=== PATIENT | female | born 1955 | race Two or more races ===

== ENCOUNTER 2018-06-13 21:31 | Emergency (ER) | payer MEDICARE, MEDICAID ==
[~2018-06-13] VITALS: Ht 162.6 cm; Wt 72.6 kg
[2018-06-13 22:30] LABS: White Blood Cell 4.4 10^3/uL (4.4-10.8)
[2018-06-13 22:43] LABS: Albumin 3.2 g/dL (3.4-5.0); Potassium 3.1 mmol/L (3.5-5.1)
[2018-06-13 22:44] LABS: Hematocrit 39.7 % (36.0-46.0); Hemoglobin 13.5 g/dL (12.2-16.2); Mean Corpuscular Hemoglobin 34.2 pg (28.0-32.0); Mean Corpuscular Volume 100.6 fL (80.0-100.0); Red Blood Cells 3.94 10^6/uL (4.0-5.20)
[2018-06-13 22:45] LABS: Platelet Count (auto) 156 10^3/uL (140-450); Red Cell Distribution Width 13.9 % (11.8-14.3)
[2018-06-13 22:47] LABS: Band Neutrophils % (manual) 0; Basophils % (manual) 0 (0.0-2.0); Blast Cells 0; Metamyelocytes % 0; Myelocytes % 0; Promyelocytes % 0; Reactive Lymphocytes 0
[2018-06-13 22:51] LABS: BUN/Creatinine Ratio 5.1; Bilirubin, Total 0.8 mg/dL (0.2-1.0); Total Protein 7.2 g/dL (6.4-8.2)
[2018-06-13 23:29] LABS: Eosinophils % (manual) 1 (0-7); Lymphocytes % (manual) 44 (10.0-50.0); Monocytes % (manual) 32 (0-12)
[2018-06-14] MEDS ORDERED: LORazepam 0.5 MG TAB PO ONE (00:30)
[2018-06-14] MEDS ORDERED: ONDANSETRON ODT 4 MG TAB PO ONE (00:30)
[2018-06-14 04:50] VITALS: BP 112/47
== END 2018-06-14 05:45 | disposition home or self-care (01) ==
LOC: EDBD 21:31 → EDSEX 21:31 → ER 21:33
DX: G40.909 Epilepsy, unspecified, not intractable, without status epilepticus (principal); R19.7 Diarrhea, unspecified
CPT/HCPCS: 36415; 70450; 80053; 82542; 85007; 85027; 93005; 99285; Q0162

== ENCOUNTER → 2018-08-06 | Outpatient (CLI) | payer MEDICARE, MEDICAID | END | disposition home or self-care (01) | LOC: LAB 10:41 | PROVIDERS: ATTEND Internal Medicine | DX: R73.03 Prediabetes (principal); R73.9 Hyperglycemia, unspecified | CPT/HCPCS: 36415; 83036 ==

== ENCOUNTER → 2019-04-30 | Outpatient (CLI) | payer MEDICARE, MEDICAID ==
[2019-04-30 11:28] LABS: Basophils # (auto) 0 uL; Eosinophils # (auto) 0 uL; Eosinophils % (auto) 0.3 % (0.0-7.0); Neutrophils # (auto) 1.9 uL; Platelet Count (auto) 136 10^3/uL (140-450); White Blood Cell 4.4 10^3/uL (4.4-10.8)
[2019-04-30 11:30] LABS: Basophils % (auto) 1.1 % (0.0-2.0); Hematocrit 40.1 % (36.0-46.0); Hemoglobin 13.3 g/dL (12.2-16.2); Lymphocytes # (auto) 1.7 uL; Lymphocytes % (auto) 37.8 % (10.0-50.0); Mean Corpuscular Hemoglobin 34.9 pg (28.0-32.0); Mean Corpuscular Hgb Conc. 33.1 g/dL (32.0-36.0); Mean Corpuscular Volume 105.3 fL (80.0-100.0); Monocytes # (auto) 0.7 uL; Monocytes % (auto) 16.6 % (0.0-12.0); Neutrophils % (auto) 44.2 % (37.0-80.0); Nucleated Red Blood Cells % 0.2 %; Red Blood Cells 3.81 10^6/uL (4.0-5.20); Red Cell Distribution Width 16.4 % (11.8-14.3)
[2019-04-30 12:08] LABS: Albumin 3.4 g/dL (3.4-5.0); Bilirubin, Total 0.6 mg/dL (0.2-1.0); Calcium 8.7 mg/dL (8.5-10.1); Potassium 3.5 mmol/L (3.5-5.1); Total Protein 7.6 g/dL (6.4-8.2)
== END | disposition home or self-care (01) ==
LOC: LAB 10:29
PROVIDERS: ATTEND Internal Medicine
DX: E11.9 Type 2 diabetes mellitus without complications (principal); E03.9 Hypothyroidism, unspecified
CPT/HCPCS: 36415; 80053; 80061; 82043; 85025

== ENCOUNTER → 2019-05-28 | Outpatient (CLI) | payer MEDICARE, MEDICAID | END | disposition home or self-care (01) | LOC: LAB 09:16 | PROVIDERS: ATTEND Internal Medicine | DX: E03.9 Hypothyroidism, unspecified (principal); E11.9 Type 2 diabetes mellitus without complications; M25.511 Pain in right shoulder | CPT/HCPCS: 36415; 82550 ==

== ENCOUNTER 2019-10-02 10:30 | Emergency (ER) | payer MEDICARE, MEDICAID ==
[~2019-10-02] VITALS: Ht 162.6 cm; Wt 93.0 kg
[2019-10-02 10:41] VITALS: BP 110/55
== END 2019-10-02 12:40 | disposition home or self-care (01) ==
LOC: ER 10:30
DX: S92.411A Displaced fracture of proximal phalanx of right great toe, initial encounter for closed fracture (principal); M19.071 Primary osteoarthritis, right ankle and foot; W19.XXXA Unspecified fall, initial encounter; Y93.89 Activity, other specified; Y92.89 Other specified places as the place of occurrence of the external cause; Y99.8 Other external cause status
CPT/HCPCS: 29515; 73630

== ENCOUNTER → 2019-11-24 | Outpatient (CLI) | payer MEDICARE, MEDICAID ==
[2019-11-24 10:17] LABS: Basophils # (auto) 0.1 10 ^3/uL (0-0.2); Basophils % (auto) 1.1 % (0.0-2.0); Eosinophils # (auto) 0 10 ^3/uL (0-0.8); Hematocrit 38.7 % (36.0-46.0); Lymphocytes # (auto) 1.6 10 ^3/uL (0.4-5.4); Monocytes # (auto) 0.8 10 ^3/uL (0-1.3); White Blood Cell 5.1 10^3/uL (4.4-10.8)
[2019-11-24 10:18] LABS: Eosinophils % (auto) 0.3 % (0.0-7.0); Lymphocytes % (auto) 31.5 % (10.0-50.0); Mean Corpuscular Hemoglobin 34.8 pg (28.0-32.0); Mean Corpuscular Hgb Conc. 33.6 g/dL (32.0-36.0); Mean Corpuscular Volume 103.7 fL (80.0-100.0); Neutrophils # (auto) 2.7 10 ^3/uL (1.6-8.6); Neutrophils % (auto) 52.1 % (37.0-80.0); Nucleated Red Blood Cells % 0.1 %; Platelet Count (auto) 141 10^3/uL (140-450); Red Blood Cells 3.74 10^6/uL (4.0-5.20); Red Cell Distribution Width 15.6 % (11.8-14.3)
[2019-11-24 10:35] LABS: Albumin 3.4 g/dL (3.4-5.0); Calcium 8.6 mg/dL (8.5-10.1); Potassium 3.3 mmol/L (3.5-5.1)
[2019-11-24 10:44] LABS: BUN/Creatinine Ratio 12.3; Bilirubin, Total 0.6 mg/dL (0.2-1.0); CRP High Sensitivity 1.33 mg/dL (< 0.3); Total Protein 7.2 g/dL (6.4-8.2)
== END | disposition home or self-care (01) ==
LOC: LAB 09:29
PROVIDERS: ATTEND Internal Medicine
DX: E11.9 Type 2 diabetes mellitus without complications (principal); D86.9 Sarcoidosis, unspecified; M25.511 Pain in right shoulder; E78.49 Other hyperlipidemia
CPT/HCPCS: 36415; 80053; 82550; 83036; 85025; 85652; 86141

== ENCOUNTER → 2020-02-05 | Outpatient (CLI) | payer MEDICARE, MEDICAID ==
[2020-02-05 11:46] LABS: Albumin 3.5 g/dL (3.4-5.0); Bilirubin, Direct 0.2 mg/dL (0-0.2); CRP High Sensitivity 0.39 mg/dL (< 0.3)
[2020-02-05 11:49] LABS: Bilirubin, Total 0.6 mg/dL (0.2-1.0); Total Protein 6.8 g/dL (6.4-8.2)
== END | disposition home or self-care (01) ==
LOC: LAB 10:53
PROVIDERS: ATTEND Internal Medicine
DX: E11.9 Type 2 diabetes mellitus without complications (principal); M25.511 Pain in right shoulder
CPT/HCPCS: 36415; 80076; 85652; 86141

== ENCOUNTER 2020-05-07 22:08 | Inpatient (IN) | payer MEDICARE, MEDICAID ==
[~2020-05-07] VITALS: Ht 170.2 cm; Wt 105.8 kg
[~2020-05-07 22:08] MED LIST: DEXL60CA4 PO; FERR-20 PO; FOLI1TAB6 PO; HYDR-4833 PO; LEVE750T15 PO; LEVO50TA7 PO; LORA-622 PO; MELO1TAB73 PO; METH2.5T PO; PRE5T OR
[2020-05-07] MEDS ORDERED: NOREPINEPHRINE 8 MG/250ML KIT 250 ML IV ONE (22:45)
[2020-05-07] MEDS: NOREPINEPHRINE 8 MG/250ML KIT 250 ML IV SCH (22:54)
[2020-05-07 23:08] LABS: Hemoglobin 10.4 g/dL (12.2-16.2)
[2020-05-07 23:10] LABS: Mean Corpuscular Hemoglobin 35.1 pg (28.0-32.0); Mean Corpuscular Hgb Conc. 31.5 g/dL (32.0-36.0); Mean Corpuscular Volume 111.5 fL (80.0-100.0); Platelet Count (auto) 88 10^3/uL (140-450); Red Blood Cells 2.96 10^6/uL (4.0-5.20); Red Cell Distribution Width 18.6 % (11.8-14.3); White Blood Cell 22.1 10^3/uL (4.4-10.8)
[2020-05-07] MEDS ORDERED: EPINEPHrine HCL 1 MG/10 ML SYRG ONE (23:10)
[2020-05-07 23:12] LABS: Basophils % (manual) 0 (0.0-2.0); Blast Cells 0; Eosinophils % (manual) 0 (0-7); Metamyelocytes % 0; Myelocytes % 0; Promyelocytes % 0; Reactive Lymphocytes 0
[2020-05-07 23:23] LABS: INR 1.4 (0.9-1.15); Partial Thromboplastin Time 44.4 sec (23.0-31.2)
[2020-05-07 23:26] LABS: BUN/Creatinine Ratio 6.9; Calcium 11.1 mg/dL (8.5-10.1); Magnesium 2.1 mg/dL (1.6-2.6)
[2020-05-07 23:27] VITALS: BP 117/52
[2020-05-07 23:31] LABS: Bilirubin, Total 1.1 mg/dL (0.2-1.0); Lactic Acid w/Reflex 14.6 mmol/L (0.4-2.0); Total Protein 5.4 g/dL (6.4-8.2)
[2020-05-07] MEDS ORDERED: SODIUM BICARBONATE 8.4 % INJ 50ML VIAL IV ONE (23:37)
[2020-05-07] MEDS ORDERED: CALCIUM CHLOR(10%) 100MG/ML 10ML SYRINGE IV ONE ×2 (23:47→23:52)
[2020-05-07 23:59] LABS: Band Neutrophils % (manual) 7; Lymphocytes % (manual) 35 (10.0-50.0)
[2020-05-08] VITALS (53 sets, daily range): BP systolic 53–128; BP diastolic 26–88
[2020-05-08] LABS: Monocytes % (manual) 11 (0-12)
[2020-05-08] MEDS ORDERED: EPINEPHrine HCL 250 ML IV ONE ×2 (00:28→07:35)
[2020-05-08] MEDS ORDERED: EPINEPHrine HCL INJECTION 4 MG in SODIUM CHL 0.9% 250 ML IV ONE (00:30)
[2020-05-08] MEDS ORDERED: MIDAZOLAM HCL 5 MG/ML-1ML VIAL ONE (01:29)
[2020-05-08] MEDS ORDERED: MIDAZOLAM HCL 5 MG/ML-1ML VIAL IV ONE (02:15)
[2020-05-08] MEDS ORDERED: SODIUM BICARBONATE 8.4 % INJ 50ML VIAL IV ONE ×4 (02:15→14:30)
[2020-05-08] MEDS ORDERED: DexAMETHasone SOD PHOS 10MG/1ML VIAL INJ IV ONE (02:15)
[2020-05-08] MEDS ORDERED: SODIUM BICARBONATE 50ML VIAL 50 ML in SOD CHL 0.45% 1,000 ML IV ONE (02:15)
[2020-05-08] MEDS ORDERED: DOXYCYCLINE 100MG/250ML 250 ML IV ONE (02:15)
[2020-05-08] MEDS: NOREPINEPHRINE 8 MG/250ML KIT 250 ML IV SCH ×3 (03:39→22:12)
[2020-05-08] MEDS ORDERED: SODIUM CHLORIDE 0.9% 1,000 ML IV ONE (04:45)
[2020-05-08] MEDS ORDERED: MORPHINE SULF INJ 2 MG/ML SYRINGE 1ML IV PRN ×2 (06:15)
[2020-05-08] MEDS ORDERED: ACETAMINOPHEN 500 MG TAB PO PRN ×2 (06:15→17:15)
[2020-05-08] MEDS ORDERED: METOCLOPRAMIDE HCL 5MG/ml INJ 2ml VIAL IV PRN (06:15)
[2020-05-08] MEDS ORDERED: NITROGLYCERIN 0.4 MG SL TAB SL PRN (06:15)
[2020-05-08] MEDS ORDERED: METOPROLOL TARTRATE 1MG/1ML-5ML VIAL IV PRN (06:15)
[2020-05-08] MEDS ORDERED: ACETAMINOPHEN 325 MG TAB PO PRN ×3 (06:15→17:15)
[2020-05-08] MEDS ORDERED: ONDANSETRON HCL 4 MG/2 ML VIAL IV PRN (06:15)
[2020-05-08] MEDS: SODIUM CHLORIDE 0.9% 1,000 ML IV SCH ×2 (06:48→22:10)
--- NOTE | 2020-05-08 07:18 | NUR ---
Respiratory note: ABG DRAWN AT THIS TIME. PT TEMP 94.4F. PT ON NORI HUGGER IN PLACE.
[2020-05-08] MEDS ORDERED: MIDAZOLAM DRIP 50 mg/50mL 50 ML IV ONE (07:47)
[2020-05-08] MEDS: MIDAZOLAM DRIP 50 mg/50mL 50 ML IV SCH ×2 (07:56→22:15)
[2020-05-08 08:26] LABS: Urine Bacteria MANY /hpf (None Seen); Urine Blood 3+ /uL (Negative); Urine Budding Yeast MANY /hpf (None Seen); Urine Hyaline Cast MANY /lpf (0 - 2); Urine Mucus FEW (None Seen); Urine Specific Gravity 1.012 (1.001-1.035); Urine WBC 49 /hpf (0 - 5); Urine WBC Clumps PRESENT /hpf (None Seen)
[2020-05-08 08:35] LABS: Cholesterol 168 mg/dL (< 200); HDL Cholesterol 7 mg/dL (40-59); LDL Cholesterol 45 mg/dL (< 100); Triglycerides 46 mg/dL (< 150)
[2020-05-08 08:40] LABS: Alcohol, Urine < 3.0 mg/dL (0-10); Amphetamine Screen, Urine NEGATIVE (NEGATIVE); Barbiturate Scree,Urine NEGATIVE (NEGATIVE); Benzodiazephine Screen, Urine POSITIVE (NEGATIVE); Cannabinoid Screen, Urine NEGATIVE (NEGATIVE); Cocaine Screen, Urine NEGATIVE (NEGATIVE); Opiate Scree,Urine NEGATIVE (NEGATIVE); Phencyclidine Screen, Urine NEGATIVE (NEGATIVE)
--- NOTE | 2020-05-08 09:30 | NUR ---
RT Transport Note: Patient transported to {ICU 102} with RN {ELLA}. Patient transported to and from procedure on ventilator with previous ordered settings. Patient on monitoring specialist with alarms set and audible, ambu-bag/mask connected to 02 tank. Patient returned to room with no adverse reaction noted. Transport completed without incident.
--- NOTE | 2020-05-08 09:35 | NUR ---
[facility] MED[facility]mitted to ICU via gurney on court recording monitor, intubated and being bagged by Respiratory Therapist. Patient transfered to bed, connected to mechanical ventilator by therapist, ROSS at bedside. Patient connected to ICU monitoring, weighed by bedscale. Patient non-responsive with rectrative tachypneic breathing pattern. Pupils fixed and dilated, no cough, no gag. In house Covid swab obtained. Paitent currently with maximum dosage of Levophed and Epi, refer to IV spreadsheet for drip rates. All assessments completed and documented in appropriate flowsheets.
[2020-05-08] MEDS ORDERED: ENOXAPARIN SOD 100 MG/1 ML SYRINGE SC SCH (10:00)
[2020-05-08] MEDS ORDERED: DOXYCYCLINE 100MG/250ML 250 ML IV SCH (10:00)
[2020-05-08] MEDS ORDERED: ENOXAPARIN SOD 40 MG/0.4 ML SYRINGE SC SCH (10:00)
[2020-05-08] MEDS ORDERED: NALOXONE HCL 1MG/ML 2ML SYRINGE IV ONE (10:32)
[2020-05-08] MEDS ORDERED: CALCIUM CHLOR(10%) 100MG/ML 10ML SYRINGE IV ONE (10:32)
[2020-05-08] MEDS ORDERED: SODIUM BICARBONATE 8.4% INJ 50ML SYRINGE IV ONE (10:32)
[2020-05-08] MEDS ORDERED: EPINEPHrine HCL 1 MG/10 ML SYRG IV ONE (10:32)
[2020-05-08] MEDS: ENOXAPARIN SOD 30 MG/0.3 ML SYRINGE SC SCH (11:30)
[2020-05-08] MEDS: ZINC SULFATE 220mg CAP or TAB PO SCH (11:30)
[2020-05-08] MEDS: CLOPIDOGREL BISULFATE 75 MG TAB PO SCH (11:30)
[2020-05-08] MEDS: ASPirin 81 mg TAB PO SCH (11:30)
[2020-05-08] MEDS: ASCORBIC ACID 1,000 MG TAB PO SCH (11:30)
[2020-05-08] MEDS ORDERED: LORazepam 2MG/ML-1ML VIAL IV PRN (11:45)
[2020-05-08] MEDS ORDERED: VANCOMYCIN PER PHARMACY 1,000 MG IV SCH (11:45)
[2020-05-08] MEDS ORDERED: MORPHINE SULFATE 4 MG/ML SYR/VIAL IV PRN (11:45)
[2020-05-08] MEDS ORDERED: LEVOTHYROXINE SODIUM 25 MCG TAB PO ONE (12:00)
[2020-05-08] MEDS: HYDROCORTISONE SOD SUCC 100 MG/2ML INJ VIAL IV SCH ×2 (12:00→18:00)
[2020-05-08] MEDS ORDERED: PHENYLEPHRINE IV 250 ML IV ONE (12:46)
[2020-05-08] MEDS: EPINEPHrine HCL 250 ML IV SCH ×2 (13:00→20:16)
[2020-05-08] MEDS: PHENYLEPHRINE IV 250 ML IV SCH ×2 (13:28→20:15)
[2020-05-08] MEDS ORDERED: ALBUTEROL SULF HFA 90MCG INH 200DOSE IN SCH (14:00)
[2020-05-08] MEDS ORDERED: SODIUM BICARBONATE 8.4% INJ 50ML SYRINGE ONE (14:06)
--- NOTE | 2020-05-08 14:16 | NUR ---
AT BEDSIDE; Dr. Whelan at bedside, orders received.
[2020-05-08] MEDS: PROPOFOL 100 ML IV SCH (14:22)
[2020-05-08] MEDS: fentaNYL Drip 2500mCg/250mlNS 250 ML IV SCH (14:22)
[2020-05-08 14:30] LABS: Lactic Acid w/Reflex 12.4 mmol/L (0.4-2.0)
[2020-05-08] MEDS: SODIUM BICARBONATE 50ML VIAL 150 ML in D5W 5% 1,000 ML IV SCH ×2 (14:30→23:42)
[2020-05-08] MEDS ORDERED: VANCOMYCIN 1GM/250ML 250 ML IV ONE (15:00)
[2020-05-08] MEDS: PIPERACILLIN-TAZOB 3.375GM 100 ML IV SCH ×2 (15:17→18:00)
--- NOTE | 2020-05-08 19:15 | NUR ---
OPENING NOTE RECEIVED REPORT FROM ALBIN FALLON. PATIENT INTUBATED AND SEDATED ON VERSED. FOLLOWING COVID [address] ON PIECE HAND WITH BP SUPPORTED BY EPI EMILIANO AND LEVO VASOPRESSORS. OGT CLAMPED. BENAVIDES PATENT TO GRAVITY. RIGHT SUBCLAVIAN TLC CDI. PATIENT POSITION FOR COMFORT. FOR MORE INFORMATION SEE INTERVENTIONS. FOR GTTS AND THEIR TITRATIONS SEE IV SPREAD SHEET. ALL FALL AND SAFETY PRECAUTIONS IN PLACE.
[2020-05-08] MEDS ORDERED: ATORVASTATIN 20 MG TAB PO SCH ×2 (22:00)
[2020-05-08] MEDS: IPRATROPIUM BROM 0.5 MG/2.5ML INH SOL NEB SCH (22:00)
[2020-05-08] MEDS ORDERED: FAMOTIDINE (10MG/ML) 2ML VL IV SCH (22:00)
[2020-05-08] MEDS: ALBUTEROL SULF 2.5 MG/0.5ML(0.5%) NEB SOLN NEB SCH (22:00)
[2020-05-09] VITALS (92 sets, daily range): BP systolic 82–130; BP diastolic 48–78
[2020-05-09] MEDS: MIDAZOLAM DRIP 50 mg/50mL 50 ML IV SCH ×2 (00:55→04:31)
[2020-05-09] MEDS: EPINEPHrine HCL 250 ML IV SCH ×2 (03:00→09:52)
--- NOTE | 2020-05-09 03:30 | NUR ---
COMPLETE BED BATH PROVIDED SKIN REASSESSED AND NO NEW BREAK DOWN NOTED. COMPLETE LINEN CHANGE PROVIDED
[2020-05-09 04:41] LABS: Hemoglobin 8.1 g/dL (12.2-16.2)
[2020-05-09 04:45] LABS: Hematocrit 26.6 % (36.0-46.0); Mean Corpuscular Hemoglobin 32.8 pg (28.0-32.0); Mean Corpuscular Hgb Conc. 30.5 g/dL (32.0-36.0); Mean Corpuscular Volume 107.2 fL (80.0-100.0); Platelet Count (auto) 75 10^3/uL (140-450); Red Blood Cells 2.48 10^6/uL (4.0-5.20); Red Cell Distribution Width 18.3 % (11.8-14.3)
[2020-05-09 04:57] LABS: Albumin 1.5 g/dL (3.4-5.0); Calcium 6.6 mg/dL (8.5-10.1); Magnesium 1.6 mg/dL (1.6-2.6); Potassium 3.1 mmol/L (3.5-5.1)
[2020-05-09 05:16] LABS: BUN/Creatinine Ratio 10.2; Bilirubin, Total 1.6 mg/dL (0.2-1.0); Phosphorus 5.2 mg/dL (2.5-4.90); Total Protein 4.2 g/dL (6.4-8.2)
[2020-05-09 05:21] LABS: Basophils % (manual) 0 (0.0-2.0); Blast Cells 0; Eosinophils % (manual) 0 (0-7); Metamyelocytes % 0; Myelocytes % 0; Promyelocytes % 0; Reactive Lymphocytes 0
--- NOTE | 2020-05-09 05:25 | NUR ---
RECEIVED CRITICAL LAB VALUE PAGED HOSPITALIST FOR ELEVATED WBC AWAITING CALL BACK
[2020-05-09] MEDS: PIPERACILLIN-TAZOB 3.375GM 100 ML IV SCH ×2 (05:48)
[2020-05-09] MEDS: HYDROCORTISONE SOD SUCC 100 MG/2ML INJ VIAL IV SCH ×5 (05:48→23:43)
--- NOTE | 2020-05-09 06:03 | NUR ---
RECEIVED CALL BACK FROM MD KOROMA UPDATED ON PATIENT WBC COUNT. RECEIVED ORDER FOR ONCOLOGY CONSULT
[2020-05-09] MEDS: PHENYLEPHRINE IV 250 ML IV SCH ×3 (06:08→22:48)
[2020-05-09 06:15] LABS: INR 2.27 (0.9-1.15); Partial Thromboplastin Time 64.6 sec (23.0-31.2)
[2020-05-09 06:32] LABS: Band Neutrophils % (manual) 20; Lymphocytes % (manual) 1 (10.0-50.0); Monocytes % (manual) 12 (0-12)
[2020-05-09] MEDS: IPRATROPIUM BROM 0.5 MG/2.5ML INH SOL NEB SCH ×3 (06:43→22:56)
[2020-05-09] MEDS: ALBUTEROL SULF 2.5 MG/0.5ML(0.5%) NEB SOLN NEB SCH ×3 (06:43→22:56)
--- NOTE | 2020-05-09 06:50 | NUR ---
PLACED ONCOLOGY CONSULT SPOKE WITH ANGELITA AT MD VÁSQUEZ EXCHANGE
[2020-05-09] MEDS: NOREPINEPHRINE 8 MG/250ML KIT 250 ML IV SCH ×2 (06:58→11:44)
[2020-05-09] MEDS ORDERED: LEVOTHYROXINE SODIUM 25 MCG TAB PO SCH (07:00)
--- NOTE | 2020-05-09 07:03 | NUR ---
Respiratory note: FIO2 DECREASED TO 85% AT THIS TIME.
[2020-05-09] MEDS: SODIUM BICARBONATE 50ML VIAL 150 ML in D5W 5% 1,000 ML IV SCH (07:46)
[2020-05-09] MEDS: fentaNYL Drip 2500mCg/250mlNS 250 ML IV SCH (09:51)
[2020-05-09] MEDS: ENOXAPARIN SOD 30 MG/0.3 ML SYRINGE SC SCH (10:00)
[2020-05-09] MEDS: MEROPENEM 1GM IVPB 100 ML IV SCH ×2 (10:00→23:30)
[2020-05-09] MEDS: ASPirin 81 mg TAB PO SCH (10:00)
[2020-05-09] MEDS: ASCORBIC ACID 1,000 MG TAB PO SCH (10:00)
[2020-05-09] MEDS: ZINC SULFATE 220mg CAP or TAB PO SCH (10:00)
[2020-05-09] MEDS: CLOPIDOGREL BISULFATE 75 MG TAB PO SCH (10:00)
--- NOTE | 2020-05-09 10:30 | NUR ---
WOUND CARE NOTE: WOUND CARE IN TO SEE PATIENT PER WOUND CARE REQUEST. PATIENT ADMITTED TO [facility] FOR CPR, NSTEMI, UNCONTROLLED DIABETES WITH HYPERGLYCEMIA, AND HYPERTENSIVE URGENCY. PATIENT IS INTUBATED AND SEDATED. PATIENT HAS NO WOUNDS, CONSULT FOR LOW ARCHIE SCORE. PATIENT ARCHIE SCORE IS 11. PATIENT NOT STABLE TO BE TURNED AT THIS TIME. RECOMMEND: FREQUENT Q2HOUR REPOSITIONING CONDITION PERMITS. REDISTRIBUTE PRESSURE UTILIZING PILLOWS AND WEDGES. DAILY/PRN DRESSING CHANGE TO SACRUM PREVENTATIVE. SKIN/WOUND CARE PLAN. DIETARY CONSULT. CONTINUED MONITORING BY WOUND CARE TEAM.
--- NOTE | 2020-05-09 11:11 | NUR ---
Nutrition Consult Consider Glucerna 1.2 at 40 ml/hr when medically feasible and per MD approval Est energy needs 5558-1665 kcal (16-18 kcal/kg BW 97.7kg) Est protein needs 61-80g (1-1.3g/kg IBW 97.7kg) Will reassess prn. Addendum: 05/09/20 at [address] Amended: Links added.
[2020-05-09] MEDS ORDERED: FLUCONAZOLE 200MG/100ML 100 ML IV ONE (11:45)
[2020-05-09] MEDS ORDERED: POTASSIUM EFFERVESENT TAB 25 MEQ GT ONE (13:00)
[2020-05-09] MEDS ORDERED: BUMETANIDE 2.5mg/10ml (0.25 mg/ml) INJ IV ONE (13:00)
[2020-05-09] MEDS ORDERED: VANCOMYCIN 1,500 MG in D5W 5% 250 ML IV ONE (13:00)
[2020-05-09 13:13] LABS: Calcium 6.9 mg/dL (8.5-10.1); Potassium 3.3 mmol/L (3.5-5.1)
[2020-05-09] MEDS: BUMETANIDE INJECTION 25 MG in GIVE UN-DILUTED 0 ML IV SCH (14:16)
[2020-05-09] MEDS: PROPOFOL 100 ML IV SCH (14:22)
[2020-05-09] MEDS: EPINEPHrine HCL INJECTION 8 MG in D5W 5% 250 ML IV SCH (14:44)
[2020-05-09] MEDS: NOREPINEPHRINE BITARTRATE 16 MG in SODIUM CHL 0.9% 250 ML IV SCH (14:46)
[2020-05-09] MEDS: PANTOPRAZOLE 40 MG/10 ML VIAL INJ IV SCH (23:30)
--- NOTE | 2020-05-09 23:30 | NUR ---
performed accucheck-pt. on solu-cortef and bs= 304; will cont. to monitor.
[2020-05-10] VITALS (98 sets, daily range): BP systolic 53–147; BP diastolic 35–86
[2020-05-10] MEDS: HYDROCORTISONE SOD SUCC 100 MG/2ML INJ VIAL IV SCH ×3 (06:00→18:30)
[2020-05-10] MEDS: ALBUTEROL SULF 2.5 MG/0.5ML(0.5%) NEB SOLN NEB SCH ×3 (06:10→22:11)
[2020-05-10] MEDS: IPRATROPIUM BROM 0.5 MG/2.5ML INH SOL NEB SCH ×3 (06:11→22:11)
[2020-05-10 07:05] LABS: Mean Corpuscular Hgb Conc. 32.2 g/dL (32.0-36.0)
[2020-05-10 07:06] LABS: Hematocrit 21.8 % (36.0-46.0); Mean Corpuscular Hemoglobin 33.8 pg (28.0-32.0); Platelet Count (auto) 55 10^3/uL (140-450); Red Blood Cells 2.08 10^6/uL (4.0-5.20); Red Cell Distribution Width 17.6 % (11.8-14.3)
[2020-05-10] MEDS: PHENYLEPHRINE IV 250 ML IV SCH ×2 (07:08→16:30)
[2020-05-10 07:11] LABS: White Blood Cell 41.2 10^3/uL (4.4-10.8)
[2020-05-10 07:13] LABS: Basophils % (manual) 0 (0.0-2.0); Blast Cells 0; Eosinophils % (manual) 0 (0-7); Promyelocytes % 0; Reactive Lymphocytes 0
[2020-05-10 07:21] LABS: Albumin 1.5 g/dL (3.4-5.0)
[2020-05-10 07:24] LABS: BUN/Creatinine Ratio 11.8; Bilirubin, Total 1.5 mg/dL (0.2-1.0); Total Protein 4.4 g/dL (6.4-8.2)
[2020-05-10 07:30] LABS: Calcium 5.9 mg/dL (8.5-10.1)
[2020-05-10 07:42] LABS: Band Neutrophils % (manual) 3; Lymphocytes % (manual) 6 (10.0-50.0); Metamyelocytes % 4; Monocytes % (manual) 6 (0-12); Myelocytes % 1
[2020-05-10] MEDS: MIDAZOLAM DRIP 50 mg/50mL 50 ML IV SCH ×2 (08:09→13:02)
[2020-05-10] MEDS: BUMETANIDE INJECTION 25 MG in GIVE UN-DILUTED 0 ML IV SCH (08:26)
[2020-05-10] MEDS: DOXYCYCLINE 100MG/250ML 250 ML IV SCH (09:57)
[2020-05-10] MEDS: FLUCONAZOLE 200MG/100ML 100 ML IV SCH (09:58)
[2020-05-10] MEDS: PANTOPRAZOLE 40 MG/10 ML VIAL INJ IV SCH (09:59)
[2020-05-10] MEDS: MEROPENEM 500MG IVPB 50 ML IV SCH ×2 (10:00→10:43)
[2020-05-10] MEDS: ENOXAPARIN SOD 30 MG/0.3 ML SYRINGE SC SCH (10:00)
[2020-05-10] MEDS: NOREPINEPHRINE BITARTRATE 16 MG in SODIUM CHL 0.9% 250 ML IV SCH ×2 (10:00→18:31)
--- NOTE | 2020-05-10 10:00 | NUR ---
PT'S ASSESSMENT COMPLETED. PT'S PUPILS FIXED AND DILATED NON REACTIVE TO LIGHT TOLD ON REPORT. PT HAS CODED ON 3 DIFFERENT OCCASIONS AND IS ON MULTIPLE VASOPRESSORS FOR BP SUPPORT. PT HAS SCANT UOP DESPITE BUMEX GTT. PT REQUIRING 50 % FIO2, CURRENTLY HAS NO COUGH OR GAG REFLUX WHEN SUCTIONED THROUGH ETT. ORAL CARE PROVIDED NO BLOOD SUCTIONED THROUGH ETT AT THIS TIME. PT HAS LOW H+H AND LOW PLT AND IS GOING TO REQUIRE A BLOOD TRANSFUSION. REPOSITIONED FOR COMFORT WITH RT'S ASSISTANCE, LINEN CHANGED OGT VALVE SWITCHED SINCE OGT WAS LEAKING OUT VALVE. ALL MONITOR ALARMS VERIFIED AT THIS TIME. PT REMAINS ON COVID ISOLATION ALL CARE IS BEING CLUSTERED.
--- NOTE | 2020-05-10 10:51 | NUR ---
ALEX GARY PLT 75, PT HAS A LOW H+H PT NEEDS BLOOD TRANSFUSION Addendum: 05/10/20 at 1054 by BOB BRADLEY RN PLT 55 NOT 75
--- NOTE | 2020-05-10 12:05 | NUR ---
RENAL DR. RIZO ROUNDING ON PT. MD AWARE THAT PT IS NOT MAKING MUCH UOP DESPITE BUMEX GTT AT 1 MG/HR. MD AWARE THAT OUP WAS 50 ML IN THE LAST 12 HOURS AND PT IS ON MULTIPLE VASOPRESSORS FOR BP SUPPORT. MD AWARE THAT PT IS FULL CODE AND THAT PRIMARY MD HAS ADDRESSED PT'S POOR PROGNOSIS.
--- NOTE | 2020-05-10 12:08 | NUR ---
GI/ DR ALTAMIRANO ROUNDING ON PT. DISCUSSED LOW H+H , NO OBVIOUS SOURCE OF BLEEDING. PT HAD SOME BLEEDING THROUGH HIS MOUTH WHEN SUCTIONED LAST NIGHT. INR ELEVATED, PLT ARE LOW. MD ORDERED FFP. PT ALREADY HAS ONE UNIT OF PRBC'S ORDERED.
[2020-05-10] MEDS: PROPOFOL 100 ML IV SCH (14:22)
[2020-05-10] MEDS: fentaNYL Drip 2500mCg/250mlNS 250 ML IV SCH (14:22)
[2020-05-10] MEDS: EPINEPHrine HCL INJECTION 8 MG in D5W 5% 250 ML IV SCH (15:14)
--- NOTE | 2020-05-10 16:32 | NUR ---
I CALLED PT'S DAUGHTER NOAM AND ASKED HER TO COME IN TO SEE PT THROUGH [facility] , THAT PT IS SICK AND THAT WE DONT' KNOW IF PT IS GOING TO MAKE IT THROUGH THE NIGHT. THAT OUR DIRECTOR APPROVED FOR THEM TO COME AND TAKE TURNS VISITING PT TWO AT A TIME FOR 15 MIN EACH. PT'S DAUGHTER STATES " I AM GOING TO CALL THE REST OF MY FAMILY AND WE ARE COMING IN".
[2020-05-10] MEDS ORDERED: PHENYLEPHRINE IV 250 ML IV ONE ×3 (17:42→22:01)
--- NOTE | 2020-05-10 20:00 | NUR ---
report received and assumed care; see interventions for assessment; vs stable at this time- with patient on 100% fio2 and on x3 vasopressors; pt. intubated/sedated/vented; will cont. to monitor.
--- NOTE | 2020-05-10 21:00 | NUR ---
family in waiting room since shift change; will provide education on PPE and hand-washing; family instructed that three at a time for 5 minutes and outside room only; will start to bring family in as instructed.
[2020-05-11] VITALS (74 sets, daily range): BP systolic 53–145; BP diastolic 24–68
[2020-05-11] MEDS: MEROPENEM 500MG IVPB 50 ML IV SCH ×2 (00:30→11:32)
[2020-05-11] MEDS: PANTOPRAZOLE 40 MG/10 ML VIAL INJ IV SCH ×2 (00:45→10:05)
[2020-05-11] MEDS: HYDROCORTISONE SOD SUCC 100 MG/2ML INJ VIAL IV SCH ×3 (01:00→12:24)
[2020-05-11] MEDS: ALBUMIN 25% 50 ML IV SCH ×3 (01:30→06:17)
[2020-05-11] MEDS ORDERED: EPINEPHrine HCL 1 MG/1 ML AMP ONE (02:42)
[2020-05-11] MEDS ORDERED: EPINEPHrine HCL 250 ML IV ONE (02:43)
[2020-05-11 06:36] LABS: Hematocrit 17.2 % (36.0-46.0); Mean Corpuscular Hemoglobin 33.5 pg (28.0-32.0); Mean Corpuscular Hgb Conc. 33.6 g/dL (32.0-36.0); Mean Corpuscular Volume 99.7 fL (80.0-100.0); Platelet Count (auto) 36 10^3/uL (140-450); Red Blood Cells 1.73 10^6/uL (4.0-5.20)
[2020-05-11 06:49] LABS: Albumin 2.2 g/dL (3.4-5.0); Magnesium 1.5 mg/dL (1.6-2.6); Potassium 4.6 mmol/L (3.5-5.1)
[2020-05-11 06:53] LABS: BUN/Creatinine Ratio 12.5; Bilirubin, Total 1.9 mg/dL (0.2-1.0); Total Protein 4.6 g/dL (6.4-8.2)
[2020-05-11 07:05] LABS: Calcium 5.2 mg/dL (8.5-10.1)
[2020-05-11 07:06] LABS: White Blood Cell 32.3 10^3/uL (4.4-10.8)
[2020-05-11 07:07] LABS: Basophils % (manual) 0 (0.0-2.0); Blast Cells 0; Eosinophils % (manual) 0 (0-7); Hemoglobin 5.8 g/dL (12.2-16.2); Promyelocytes % 0; Reactive Lymphocytes 0
[2020-05-11 07:38] LABS: Band Neutrophils % (manual) 3; Lymphocytes % (manual) 3 (10.0-50.0); Metamyelocytes % 4; Monocytes % (manual) 2 (0-12); Myelocytes % 2
[2020-05-11] MEDS: DOXYCYCLINE 100MG/250ML 250 ML IV SCH ×2 (09:00)
[2020-05-11] MEDS: ALBUTEROL SULF 2.5 MG/0.5ML(0.5%) NEB SOLN NEB SCH ×2 (09:19→15:46)
[2020-05-11] MEDS: IPRATROPIUM BROM 0.5 MG/2.5ML INH SOL NEB SCH ×2 (09:19→15:46)
[2020-05-11] MEDS: ENOXAPARIN SOD 30 MG/0.3 ML SYRINGE SC SCH (09:56)
--- NOTE | 2020-05-11 10:00 | NUR ---
AM ASSESSMENT COMPLETED REMAINS ON MULTIPLE PRESSORS. PT REMAINS UNRESPONSIVE, PUPILS ARE 2 NON REACTIVE. NO COUGH OR GAG REFLUX. PT'S HGB HAS DRASTICALLY DECREASED FROM YESTERDAYS, DESPITE ONE PRBC AND 2 FFP. PT/INR ARE ELEVATED. PT WAS RECEIVING IVF, BLOOD WILL BE RE-DRAWN FOR POSSIBLE HEMODILUTION OF BLOOD. THERE IS A FAMILY MEETING PENDING TO DECIDE ON PT'S CODE STATUS AND A POSSIBLE TERMINAL WEAN D/T PT'S POOR PROGNOSIS CONSIDERING MODS. PT CURRENTLY REQUIRING 100% FIO2, HAS NO UOP. REQUIRING 3 MAJOR VASOPRESSORS TO MAINTAIN BLOOD PRESSURE. AND PT IS NON RESPONSIVE. ORAL CARE RENDERED. DID NOT REPOSITIONED D/T HIGH OXYGEN REQUIREMENTS.
[2020-05-11] MEDS: PHENYLEPHRINE INJ 40 MG in SODIUM CHL 0.9% 250 ML IV SCH ×2 (10:07→11:01)
--- NOTE | 2020-05-11 10:48 | NUR ---
Nutrition Followup Notes Pt is positive for COVID. Pt is NPO, Pt is s/p CPR, non-responsive, prognosis is poor, scheduled for terminal weaning. Est energy needs 3833-7554 kcal (16-18 kcal/kg BW 97.7kg) Est protein needs 61-80g (1-1.3g/kg IBW 97.7kg) Will reassess prn. LABS: BUN 42 H, Cr 3.37 H, GFR 15 L, Ca 5.2 L, AST 252 H, ALT 206 H, Alk Phos 199 H, Bilig 1.9 H, Gluc 200 H, Alb 2.2 L GI: Pt had 1 BM on 05/07 per RN doc BS: 12 high risk. Refer to wound assessment report for full details. PES: 1) Inadequate oral intake r/t pt intubated and sedated aeb pt with NPO diet order 2) Altered nutrition related labs r/t current and chronic medical conditions aeb pt with elevated RFTs, hyperglycemia, hypoalb Comments 1) Continue to monitor NPO status, labs, skin 2) Refer pt to [facility]PD on Dc 3) Continue current plan of care
[2020-05-11] MEDS: FLUCONAZOLE 200MG/100ML 100 ML IV SCH (10:59)
[2020-05-11 11:08] LABS: Hematocrit 15.5 % (36.0-46.0); Mean Corpuscular Hemoglobin 34.1 pg (28.0-32.0); Mean Corpuscular Hgb Conc. 34.4 g/dL (32.0-36.0); Mean Corpuscular Volume 99.2 fL (80.0-100.0); Platelet Count (auto) 34 10^3/uL (140-450); Red Blood Cells 1.56 10^6/uL (4.0-5.20); Red Cell Distribution Width 17.1 % (11.8-14.3); White Blood Cell 29.1 10^3/uL (4.4-10.8)
[2020-05-11 11:18] LABS: Hemoglobin 5.3 g/dL (12.2-16.2)
[2020-05-11 11:20] LABS: Band Neutrophils % (manual) 0
[2020-05-11 11:21] LABS: Basophils % (manual) 0 (0.0-2.0); Blast Cells 0; Eosinophils % (manual) 0 (0-7); Promyelocytes % 0; Reactive Lymphocytes 0
--- NOTE | 2020-05-11 11:21 | NUR ---
LAB CALLED PT'S REPEAT HGB 5.8, DR JORDAN WAS NOTIFIED, SHE ORDERED ONE UNIT OF PRBC'S.
[2020-05-11 12:26] LABS: Lymphocytes % (manual) 2 (10.0-50.0); Metamyelocytes % 4; Monocytes % (manual) 6 (0-12); Myelocytes % 1
--- NOTE | 2020-05-11 12:49 | NUR ---
NOTIFIED DR. PATIÑO OF PT'S LOW BP 82/ 50 PT MAXED OUT ON NEOSYNEPHRINE. NO UOP. ORDERED LEVOPHED. MD WILL COME IN TO SEE PT. CURRENTLY ON A MEETING. Addendum: 05/11/20 at 1434 by BOB BRADLEY RN WRONG CHART
[2020-05-11 12:52] LABS: INR 1.32 (0.9-1.15)
[2020-05-11] MEDS ORDERED: NOREPINEPHRINE 8 MG/250ML KIT 250 ML IV SCH (13:00)
[2020-05-11] MEDS: BUMETANIDE INJECTION 25 MG in GIVE UN-DILUTED 0 ML IV SCH (13:00)
[2020-05-11] MEDS ORDERED: NOREPINEPHRINE BITARTRATE 16 MG in SODIUM CHL 0.9% 250 ML IV SCH (13:30)
[2020-05-11] MEDS: PROPOFOL 100 ML IV SCH (14:22)
[2020-05-11] MEDS: fentaNYL Drip 2500mCg/250mlNS 250 ML IV SCH (14:22)
[2020-05-11] MEDS: EPINEPHrine HCL INJECTION 8 MG in D5W 5% 250 ML IV SCH (14:44)
[2020-05-11] MEDS ORDERED: CALCIUM GLUC 4.65meq/50ml D5AE 50 ML IV ONE ×2 (15:15→15:45)
--- NOTE | 2020-05-11 15:47 | NUR ---
assessment Patient is a 64 year old female who is on a vent in ICU. Per patients daughter Elena prior to admission patient lived home with her and needed assistance. Patient has a cane for home use. Patients PCP is Dr Rutledge. Elena is patients SS caregiver. Patient is covid positive. I informed Elena patients post discharge needs to be determined after extubation. Elena verbalized understanding. Addendum: 05/11/20 at 1548 by Ericka LORD Amended: Links added.
--- NOTE | 2020-05-11 16:53 | NUR ---
PT'S FAMILY HERE FOR FAMILY MEETING WITH DR. JORDAN TO DECIDE ON PT'S CODE STATUS AND THEY DECIDED TO DO A TERMINAL WEAN FOR COMFORT CARE, CONSIDERING PT'S POOR PROGNOSIS SINCE PT'S ORGANS ARE FAILING.
[2020-05-11] MEDS ORDERED: LORazepam 2MG/ML-1ML VIAL IV PRN ×2 (17:00→17:30)
[2020-05-11] MEDS ORDERED: MORPHINE SULF INJ 2 MG/ML SYRINGE 1ML IV PRN (17:00)
--- NOTE | 2020-05-11 18:33 | NUR ---
PT WAS TERMINALLY WEANED OF VENTILATOR, PT WAS PREMEDICATED WITH 2 MG OF MS AND 1 MG OF ATIVAN FOR COMFORT. PT'S FAMILY DECIDED NOT TO BE PRESENT FOR TERMINAL WEANED.
--- NOTE | 2020-05-11 18:33 | NUR ---
PT TERMINALLY EXTUBATED PER DR. JORDAN AT THIS TIME. EXTUBATION PERFORMED WITH CAPR AND ALL REQUIRED PPE. PT PLACED ON 2L NC. VASYL TAVAREZ IS AWARE.
--- NOTE | 2020-05-11 19:14 | NUR ---
ASYSTOLE EKG STRIP . AWAITING FOR ED MD TO COME TO PRONOUNCE, NOTIFIED GUARD MUSEUM.
--- NOTE | 2020-05-11 19:30 | NUR ---
REPORT RECEIVED AND ASSUMED CARE; PT. TERMINAL WEAN AND WAS EXTUBATED AT 18:33 AND TIME OF IS 19:14. DR. DONIS AT BEDSIDE TO PRONOUNCE AND PT. ASYSTOLE AT 19:14 AND THAT IS TIME OF .
--- NOTE | 2020-05-11 20:46 | NUR ---
S/W [facility] [employer]; BODY RELEASED DUE TO COVID-19 POSITIVE; REF# [id number].
--- NOTE | 2020-05-11 20:53 | NUR ---
LEFT MESSAGE FOR TOWN CLERK TO CALL ME.
--- NOTE | 2020-05-11 21:02 | NUR ---
S/W MAMM[employer] CONTR[employer] AGENT- JENNIFER DONNELLY; BODY RELEASED PER MAMMAL CONTROL AGENT; ONLY TAKING MAMMAL CONTROL AGENT CASES AND THERE WILL BE NO CASE#; [employer]UARY WILL CALL TO REPORT POSITIVE COVID-19.
--- NOTE | 2020-05-11 22:20 | NUR ---
S/W DAUGHTER AND STILL WORKING ON MORTUARY; WE WILL HOLD BODY IN [facility]; FAMILY TO CALL TOMORROW DURING THE DAY WHEN THEY KNOW MORE.
--- NOTE | 2020-05-12 02:50 | NUR ---
TRANSPORTED BODY TO [facility]; EVS, SECURITY, AND X2 RN'S ON TRANSPORT.
--- NOTE | 2020-05-14 07:55 | NUR ---
LATE ENTRY FOR 05/11/2020 1215 ATTEMPTED TO REPOSITION PT'S SPO2 STARTED DROPPING TO THE LOW 80'S. STOP TRYING AFTER THAT DUE TO PT'S INSTABILITY AND BP DROPPED , BP MEDS HAD TO BE ADJUSTED.
== END 2020-05-11 19:14 | disposition expired | DRG 871 ==
LOC: ER 22:08 → EDBD 22:08 → OVERFLOW 22:09 → ICU WEST 05-08 09:51
PROVIDERS: ADMIT Hospitalist; ATTEND Internal Medicine
PROC: 5A1945Z Respiratory Ventilation, 24-96 Consecutive Hours (ICD-10-PCS; principal; 2020-05-07)
PROC: 0BH17EZ Insertion of Endotracheal Airway into Trachea, Via Natural or Artificial Opening (ICD-10-PCS; 2020-05-07)
PROC: 5A12012 Performance of Cardiac Output, Single, Manual (ICD-10-PCS; 2020-05-07)
PROC: 02HV33Z Insertion of Infusion Device into Superior Vena Cava, Percutaneous Approach (ICD-10-PCS; 2020-05-08)
PROC: 5A12012 Performance of Cardiac Output, Single, Manual (ICD-10-PCS; 2020-05-08)
PROC: 30233N1 Transfusion of Nonautologous Red Blood Cells into Peripheral Vein, Percutaneous Approach (ICD-10-PCS; 2020-05-10)
PROC: 30233K1 Transfusion of Nonautologous Frozen Plasma into Peripheral Vein, Percutaneous Approach (ICD-10-PCS; 2020-05-10)
DX: A41.89 Other specified sepsis (principal); R65.21 Severe sepsis with septic shock; J96.01 Acute respiratory failure with hypoxia; I21.A1 Myocardial infarction type 2; E43 Unspecified severe protein-calorie malnutrition; N17.0 Acute kidney failure with tubular necrosis; G93.41 Metabolic encephalopathy; J12.89 Other viral pneumonia; U07.1 COVID-19; K72.00 Acute and subacute hepatic failure without coma; N39.0 Urinary tract infection, site not specified; I13.0 Hypertensive heart and chronic kidney disease with heart failure and stage 1 through stage 4 chronic kidney disease, or unspecified chronic kidney disease; E87.1 Hypo-osmolality and hyponatremia; E87.2 Acidosis; M62.82 Rhabdomyolysis; D68.9 Coagulation defect, unspecified; G93.1 Anoxic brain damage, not elsewhere classified; Z16.12 Extended spectrum beta lactamase (ESBL) resistance; I46.9 Cardiac arrest, cause unspecified; E11.65 Type 2 diabetes mellitus with hyperglycemia; I16.0 Hypertensive urgency; N18.9 Chronic kidney disease, unspecified; E11.22 Type 2 diabetes mellitus with diabetic chronic kidney disease; D64.9 Anemia, unspecified; E03.9 Hypothyroidism, unspecified; E66.01 Morbid (severe) obesity due to excess calories; E78.5 Hyperlipidemia, unspecified; Z86.19 Personal history of other infectious and parasitic diseases; D86.9 Sarcoidosis, unspecified; E83.39 Other disorders of phosphorus metabolism; G40.409 Other generalized epilepsy and epileptic syndromes, not intractable, without status epilepticus; D69.59 Other secondary thrombocytopenia; B96.20 Unspecified Escherichia coli [E. coli] as the cause of diseases classified elsewhere; Z51.5 Encounter for palliative care; Z78.9 Other specified health status; Z88.2 Allergy status to sulfonamides; Z68.32 Body mass index [BMI] 32.0-32.9, adult
CPT/HCPCS: 31500; 36415; 36569; 36600; 70450; 71045; 71250; 76705; 76775; 80048; 80053; 80061; 80202; 80307; 81001; 82140; 82550; 82805; 82962; 83036; 83605; 83735; 83880; 84100; 84132; 84443; 84484; 85007; 85027; 85610; 85730; 86850; 86900; 86901; 86920; 87040; 87070; 87077; 87081; 87086; 87088; 87186; 87205; 87426; 92950; 93005; 93970; 94002; 94003; 94640; 99291; 99292; C9113; G0378; J0171; J0610; J1100; J1450; J2185; J2250; J2543; J3490; J7060